=== PATIENT | female | born 1995 | race Caucasian/White ===

== ENCOUNTER 2018-10-06 23:25 | Inpatient (IN) | payer MEDICAID ==
[~2018-10-06] VITALS: Ht 165.1 cm; Wt 67.1 kg
[2018-10-06 23:25] VITALS: BP 120/60
--- NOTE | 2018-10-06 23:25 | NUR ---
PATIENT BIB ALS TO ER BED 10.
--- NOTE | 2018-10-06 23:25 | NUR ---
Lc butler in [facility] - 10/06/18 at 2327 by GRACE PT MISTY TEE. TAKEN TO BED 10
--- NOTE | 2018-10-06 23:25 | NUR ---
23 Y/O FEMALE [place] [facility] [place]. FIRE STATES PT WAS IN VTACH AT 183 AND GIVEN AMIODARONE.6 AND 12. HR REDUCED TO 132 UPON ER ARRIVAL. PT NON-VERBAL AND NON-AMBULATORY AT BASELINE. FEBRILE AT 105.3 RACTAL. COOLING MEASUES IMPLEMENTED. SKIN WORM AND DRY. PUPILS EQUAL AND REACTIVE (PERRLA) @ 3MM. X2 SIDE RAILS UP. ER MD AT BEDSIDE FOR EVALUATION. CONTINUE TO MONITOR.
[2018-10-06] MEDS ORDERED: NACL 0.9% 2,000 ML IV ONE (23:34)
[2018-10-06] MEDS ORDERED: LEVOFLOXACIN 750 MG/D5W PREMIX 150 ML IV ONE (23:35)
[2018-10-06] MEDS ORDERED: IBUPROFEN CHILDRENS 100 MG/5 ML UDC PO ONE (23:35)
[2018-10-06] MEDS ORDERED: VANCOMYCIN 1,000 MG in DEXTROSE 5% 250 ML IV ONE (23:35)
[2018-10-06] MEDS ORDERED: ACETAMINOPHEN 650 MG SUPP RC ONE ×2 (23:35→23:44)
[2018-10-06] MEDS ORDERED: IBUPROFEN CHILDRENS 100 MG/5 ML UDC ONE (23:44)
[2018-10-06] MEDS ORDERED: CRAN450C GT (23:54)
[2018-10-06] MEDS ORDERED: LEVE1000 GT (23:54)
[2018-10-06] MEDS ORDERED: MELA3TAB GT (23:54)
[2018-10-06] MEDS ORDERED: LORA10TA19 GT (23:54)
[2018-10-06] MEDS ORDERED: TOP100 GT (23:54)
[2018-10-06] MEDS ORDERED: DOCU250S72 GT (23:54)
[2018-10-06] MEDS ORDERED: POLY15SO48 OP (23:54)
[2018-10-06] MEDS ORDERED: MIRABULK GT (23:54)
[2018-10-06 23:59] LABS: HEMATOCRIT 42.5 % (36-48); HEMOGLOBIN 13.8 g/dL (12.0-16.0); MEAN CORPUSCULAR HEMOGLOBIN 30 pg (27-31); MEAN CORPUSCULAR HGB CONC 33 g/dL (33-37); MEAN CORPUSCULAR VOLUME 91.3 fL (80-94); PLATELET COUNT (AUTO) 205 K/uL (140-450); RED BLOOD CELL COUNT(AUTO) 4.65 MIL/uL (4.20-5.40); WHITE BLOOD COUNT (AUTO) 17.6 K/uL (4.8-10.8)
[2018-10-07] VITALS (11 sets, daily range): BP systolic 104–140; BP diastolic 52–89
[2018-10-07 00:10] LABS: ANION GAP 19.7 (8-16); CARBON DIOXIDE 22.1 mmol/L (21-32); CREATININE 1.2 mg/dL (0.6-1.3); POTASSIUM 3.8 mmol/L (3.5-5.1)
[2018-10-07 00:13] LABS: PROTHROMBIN TIME 11.6 secs (10.8-13.4)
[2018-10-07 00:16] LABS: TOTAL BILIRUBIN 0.6 mg/dL (0.0-1.0)
[2018-10-07 00:19] LABS: LYMPHOCYTES % (MANUAL) 2 % (20-46)
--- NOTE | 2018-10-07 00:30 | NUR ---
PT IN BED RESTING. VSS. NON-PRODUCTIVE COUGH PRESENT BUT NO RESPIRATORY DISTRESS NOTED. CONTINUE TO MONITOR.
[2018-10-07] MEDS ORDERED: VANCOMYCIN 1,000 MG VIAL ONE (00:36)
--- NOTE | 2018-10-07 00:40 | NUR ---
X-Ray at bedside.
--- NOTE | 2018-10-07 01:00 | NUR ---
TEMPERATURE DECREASED TO 100.3. CONTINUE COOLING MEASURES. CONTINUE TO MONITOR.
[2018-10-07] MEDS ORDERED: diphenhydrAMINE 50 MG/ML VIAL IVP ONE (01:10)
--- NOTE | 2018-10-07 01:11 | NUR ---
PT NOTED WITH HIVES TO RIGHT ARM WHERE LEVAQUIN WAS INFUSING. ANTIBIOTICS STOPPED, DISCONTINUED. DR. HOOVER MADE AWARE. IV FLUSHED WITH 10 CC NS. WAITING FOR NEW ORDERS.
[2018-10-07] MEDS ORDERED: diphenhydrAMINE 50 MG/ML VIAL ONE (01:23)
[2018-10-07] MEDS ORDERED: DOCUSATE SODIUM 100 MG GELCAP PO PRN (01:30)
[2018-10-07] MEDS ORDERED: KETOROLAC 15 MG/ML VIAL IVP PRN (01:30)
[2018-10-07] MEDS ORDERED: MORPHINE SULFATE 2 MG/ML SYR IVP PRN (01:30)
[2018-10-07] MEDS ORDERED: ZOLPIDEM 5 MG TAB PO PRN (01:30)
[2018-10-07] MEDS ORDERED: ONDANSETRON 4 MG/2 ML VIAL IM/IVP PRN (01:30)
[2018-10-07] MEDS ORDERED: IBUP-1842 GT (01:45)
[2018-10-07] MEDS ORDERED: TRAM50TA3 GT (01:45)
[2018-10-07] MEDS ORDERED: LACT1TAB35 GT (01:45)
[2018-10-07] MEDS ORDERED: MULT-1868 GT (01:45)
[2018-10-07] MEDS ORDERED: NUTR887L GT (01:45)
[2018-10-07] MEDS ORDERED: VITD1000 GT (01:45)
[2018-10-07] MEDS ORDERED: RIVA20TA GT (01:45)
[2018-10-07] MEDS ORDERED: OSC500 GT (01:45)
[2018-10-07] MEDS ORDERED: DEXL30EC GT (01:46)
[2018-10-07] MEDS ORDERED: CHLO480L1 PO (01:47)
[2018-10-07 01:54] LABS: APPEARANCE,URINE HAZY (CLEAR); BILIRUBIN,URINE NEGATIVE (NEGATIVE); BLOOD, URINE 3+ (NEGATIVE); COLOR,URINE YELLOW (YELLOW); LEUKOCYTE ESTERASE ,URINE 1+ (NEGATIVE); NITRITE, URINE NEGATIVE (NEGATIVE); UGLUCOSE NEGATIVE (NEGATIVE)
--- NOTE | 2018-10-07 02:00 | NUR ---
PT IN BED RESTING. VSS. HOB ELEVATED. AFEBRILE. NO RESPIRATORY DISTRESS. PT CALM. CONTINUE TO MONITOR.
--- NOTE | 2018-10-07 02:07 | NUR ---
BP TAKEN AND REDUCED TO 78/43 WITH HR OF 114. DR HOOVER NOTIFIED. LEVOPHED DRIP ORDERED. DR HOOVER STATES PT STABLE FOR TRANSFER TO ICU AT THIS TIME WITHOUT STARTING THE LEVOPHED DRIP.
[2018-10-07 02:10] LABS: BARBITURATE, URINE NEG. ng/ml (NEG <=200); BENZODIAZEPINE, URINE NEG. ng/mL (NEG <=200); CANNABINOID, URINE NEG. ng/mL (NEG <=50); COCAINE, URINE NEG. ng/mL (NEG <=300); OPIATE, URINE NEG. ng/mL (NEG <=2000); PHENCYCLIDINE SCREEN,URINE NEG. ng/mL (NEG <=25)
[2018-10-07] MEDS ORDERED: NOREPINEPHRINE 4 MG in DEXTROSE 5% 250 ML IV ONE (02:10)
[2018-10-07] MEDS ORDERED: NACL 0.9% 2,000 ML IV ONE (02:10)
--- NOTE | 2018-10-07 02:10 | NUR ---
2,000 ML OF NS STARTED AT 02:10. UNABLE TO CHART IN EMAR. ORDERS CARRIED OUT PER DR HOOVER.
[2018-10-07 02:11] LABS: MAGNESIUM 2.1 mg/dL (1.8-2.4); PHOSPHORUS 2.8 mg/dL (2.5-4.9); THYROID STIMULATING HORMONE 0.65 uIU/mL (0.34-3.74)
[2018-10-07 02:15] LABS: RBC,URINE 20-50 /HPF (0-5)
--- NOTE | 2018-10-07 02:25 | NUR ---
BP RECYCLED PRIOR TO TRANSFER TO ICU 8. BP 104/53. CONTINUE TO MONITOR.
--- NOTE | 2018-10-07 02:30 | NUR ---
RECEIVED REPORT FROM ER NURSE, PATIENT SAFELY TRANSFERRED TO ICU8, PATIENT CONNECTED TO LEADS, BP, [id number]. WILL CONTINUE ADMISSION PROCESS.
--- NOTE | 2018-10-07 02:35 | NUR ---
REPORT GIVEN AND CARE TRANSFERED TO [facility] ROOM ICU 8. TRANSFERED VIA GURNEY WITH VSS.
--- NOTE | 2018-10-07 02:40 | NUR ---
IN TO ASSESS PATIENT, WILL CARRY OUT NEW ORDERS.
--- NOTE | 2018-10-07 02:55 | NUR ---
PATIENT ANOx0, EYE OPENING SPONTANEOUSLY, UNABLE TO TRACK. EYES 4MM PERRL,BRISK, CANNOT FOLLOW COMMANDS, CANNOT MAKE NEEDS KNOWN. SKIN IS WARM, SLIGHTLY FLUSHED IN THE FACE. TEMPERATURE PER TEMPORAL ARTERY SCAN 98.2, NO COOLING MEASURES IN PLACE. PATIENT HAS A TRACHEOSTOMY TO COLLAR WITH 4L.SATURATION 100% CRACKLES HEARD ON LUNG SOUNDS BILATERALLY UPPER LOBES. RESPIRATIONS UNLABORED-14. SINUS TACH ON MONITOR-HR 115, S1S2. BP-104/52. SKIN IS INTACT, NO PRESSURE INJURIES NOTED, SURGICAL INCISION SCAR ON LEFT BACK, NO EDEMA, RIGHT ARM SLIGHTLY MOTTLED. BUE CONTRACTED, LEFT LEG CONTRACTED, BILATERAL FEET DEFORMITY. CAP REFILL <3 SEC. PATIENT HAS RIGHT WRIST PERIPHERAL IV 20G AND LEFT AC 20G. CURRENTLY GIVING 3L NS BOLUS AND ANTIBIOTIC VANCO. PATIENT HAS VALENTE CATHETER IN PLACE. FLACC 0. ALLERGY BAND, ID BAND, AND FALL RISK BANDS IN PLACE. BED LOCKED AND IN LOWEST POSITION, HOB ELEVATED 30 DEGREES. WILL FOLLOWUP ON ORDERS.
[2018-10-07] MEDS ORDERED: MELATONIN 3 MG TAB GT PRN (03:30)
[2018-10-07] MEDS ORDERED: traMADol 50 MG TAB GT PRN (03:30)
[2018-10-07] MEDS ORDERED: IBUPROFEN 400 MG TAB GT PRN (03:40)
[2018-10-07] MEDS: NACL 0.9% 1,000 ML IV SCH ×3 (04:30→20:12)
[2018-10-07] MEDS ORDERED: cefTRIAXone 1,000 MG VIAL ONE (04:54)
--- NOTE | 2018-10-07 05:00 | NUR ---
VAP ORAL CARE PROVIDED, PATIENT REPOSITIONED, AFEBRILE. NO SIGNS OF DISTRESS AT THIS TIME, WILL CONTINUE TO MONITOR.
--- NOTE | 2018-10-07 06:15 | NUR ---
PATIENT'S MOTHER (SWIMMING POOL SALESPERSON) CONTACTED, UPDATED ON PATIENT, MOTHER CONFIRMED SHE WILL BE ON HER WAY TO SIGN ADMISSION PAPERWORK.
--- NOTE | 2018-10-07 07:07 | NUR ---
RECEIVED BEDSIDE REPORT FROM TOWER HOIST OPERATOR RN, DAKOTAH, FOR CONTINUITY OF CARE. PATIENT IS AWAKE, OPENS EYES SPONTANEOUSLY, UNABLE TO MAKE NEEDS KNOWN OR FOLLOW SIMPLE COMMANDS. PATIENT SKIN IS INTACT, WARM, DRY, AFEBRILE. PATIENT HAS PERIPHERAL IV SITE TO LAC, 20 GAUGE AND R. WRIST, 20 GAUGE. BOTH ASYMPTOMATIC AND PATENT. PATIENT HAS TRACH COLLAR, BREATHING IS EVEN AND UNLABORED, O2 SAT IS 95%, LUNG SOUNDS IS COARSE BILATERALLY. PATIENT IS ST ON MONITOR, BP IS 124/99. PATIENT HAS GTUBE IN PLACE. VALENTE CATHETER IN PLACE TO CLEAR YELLOW URINE. HOB IS 30 DEGREES, BED LOCKED SIDE RAILS UP. SAFETY PRECAUTIONS AND ALARMS ASSESSED AND IN PLACE. NO SIGNS OF DISTRESS AT THIS TIME.
--- NOTE | 2018-10-07 07:10 | NUR ---
GAVE REPORT TO DAY SHIFT NURSES FOR FOLLOWUP CARE. ENDORSED THAT FEEDING IS ORDERED, JUST WAITING TO RECEIVE IT, ENDORSED THAT MOTHER IS ON THE WAY TO COMPLETE PAPERWORK. NO SIGNS OF DISTRESS NOTED, FLACC 0.
[2018-10-07 07:33] LABS: ANION GAP 15.1 (8-16); CARBON DIOXIDE 16.6 mmol/L (21-32); CREATININE 0.9 mg/dL (0.6-1.3); POTASSIUM 3.7 mmol/L (3.5-5.1)
--- NOTE | 2018-10-07 07:34 | NUR ---
RESIDENT PHYSICIANS AT BEDSIDE, UPDATED PATIENT'S MOTHER ON PATIENT'S CONDITION, DISCUSSED PLACING CENTRAL LINE IN PATIENT IF NEEDED FOR LOW BP, PATIENT'S MOTHER VERBALIZED UNDERSTANDING.
--- NOTE | 2018-10-07 07:48 | NUR ---
DR. AMEZCUA IN TO SEE PATIENT, UPDATED ON PATIENT'S CONDITION. WILL FOLLOW UP ON ANY ORDERS.
[2018-10-07] MEDS ORDERED: LORazepam 2 MG/ML VIAL IVP SCH (07:50)
[2018-10-07] MEDS: POLYETHYLENE GLYCOL 17 GM/PKT GT SCH (08:24)
[2018-10-07] MEDS: DOCUSATE 100 MG/10 ML UDC GT SCH (08:25)
[2018-10-07] MEDS: PANTOPRAZOLE 40 MG INJ VIAL IVP SCH (08:25)
[2018-10-07] MEDS: LACTOBACILLUS RHAMNOSUS GG 1 EACH CAP GT SCH (08:28)
[2018-10-07] MEDS: RIVAROXABAN 10 MG TAB GT SCH (08:28)
[2018-10-07] MEDS: levETIRAcetam 500 MG TAB GT SCH ×2 (08:29→20:11)
[2018-10-07] MEDS: LORATADINE 10 MG TAB GT SCH (08:29)
[2018-10-07] MEDS: MULTIVITAMIN/MINERALS 1 TAB GT SCH (08:29)
[2018-10-07] MEDS: TOPIRAMATE 100 MG TAB GT SCH ×2 (08:29→20:12)
[2018-10-07] MEDS ORDERED: VANCOMYCIN PER PHARMACY MC PRN (08:35)
[2018-10-07 08:55] LABS: HEMATOCRIT 39.6 % (36-48); HEMOGLOBIN 11.7 g/dL (12.0-16.0); MEAN CORPUSCULAR HEMOGLOBIN 29 pg (27-31); MEAN CORPUSCULAR HGB CONC 30 g/dL (33-37); MEAN CORPUSCULAR VOLUME 96.1 fL (80-94); PLATELET COUNT (AUTO) 149 K/uL (140-450); RED BLOOD CELL COUNT(AUTO) 4.12 MIL/uL (4.20-5.40)
[2018-10-07] MEDS ORDERED: NON-FORMULARY ITEM (Chlorhexidine Gluconate (Periogard 480 Ml) 15 ML) PO SCH (09:00)
[2018-10-07] MEDS ORDERED: NON-FORMULARY ITEM (Amino Acids/Protein Hydrolys (Pro-Stat Sugar Free Liquid) 30 ML) GT SCH (09:00)
--- NOTE | 2018-10-07 09:14 | NUR ---
SPOKE WITH PHARMACIST, THAD, REGARDING ADMINISTERING ANTIBIOTIC ZOSYN, STATES TO MONITOR PATIENT FOR ANY REACTIONS DUE TO HER ALLERGIES TO MEROPENEM
[2018-10-07 09:22] LABS: WHITE BLOOD COUNT (AUTO) 32.7 K/uL (4.8-10.8)
[2018-10-07 09:23] LABS: LYMPHOCYTES % (MANUAL) 3 % (20-46); MONOCYTES % (MANUAL) 7 % (5-12)
[2018-10-07] MEDS: CHOLECALCIFEROL 1,000 IU TAB GT SCH (09:32)
[2018-10-07] MEDS: CALCIUM CARBONATE 500 MG TAB GT SCH (09:33)
[2018-10-07] MEDS: POLYVINYL ALCOHOL 1.4% OP 15 ML SOL BOTH EYES SCH ×2 (09:33→20:14)
--- NOTE | 2018-10-07 09:59 | NUR ---
IS HERE TO SEE PATIENT, UPDATED ON PATIENT'S CONDITION. WILL FOLLOW UP ON ANY ORDERS.
--- NOTE | 2018-10-07 11:47 | NUR ---
PATIENT HAD 1 MODERATE SOFT YELLOW BM, SHE WAS CLEANED AND REPOSITIONED. NO SIGNS OF DISTRESS AT THIS TIME
[2018-10-07] MEDS: PIPER/TAZO 3.375GM/D5W PREMIX 50 ML IV SCH ×3 (11:59→23:43)
--- NOTE | 2018-10-07 12:43 | NUR ---
PATIENT HAS BEEN SCREENED AND CATEGORIZED HIGH NUTRITION RISK. PATIENT WILL BE SEEN WITHIN 1-2 DAYS OF ADMISSION. 10/07/1804/28BRENNAN VICTORIA MBA, RD
[2018-10-07] MEDS: VANCOMYCIN 1GM/DEXT 5% PREMIX 200 ML IV SCH (13:07)
--- NOTE | 2018-10-07 15:30 | NUR ---
HOTEL CONTROLLER CALLED TO BEDSIDE TO ASSESS PULMONARY DISTRESS PATIENT PRESENTING WITH SINUS TACHYCARDIA AND INCREASED SOB PORTEX #8 CUFFLESS TRACH INNER CANNULA FOUND TO BE SEMI PLUGGED CHANGED INNER CANNULA AT THIS TIME Addendum: 10/07/18 at 1609 by Cory Black RT ON SUPPLEMENTAL OXYGEN AT 4 LPM VIA TRACH MASK
--- NOTE | 2018-10-07 15:34 | NUR ---
PATIENT WAS TACHYCARDIC, DR. DIALLO AWARE. RT AT BEDSIDE.
--- NOTE | 2018-10-07 15:48 | NUR ---
ADDED COOL AEROSOL AT 30%/8 LPM VIA INLINE SUCTION CATHETER
--- NOTE | 2018-10-07 16:05 | NUR ---
RESTING WELL DECREASED SOB TO 20 BPM SATURATION 99% ON COOL AEROSOL AT 30%/8 LPM TO INLINE SUCTIONCATHETER/TRACH
--- NOTE | 2018-10-07 17:15 | NUR ---
10/07/18 RD INITIAL ASSESSMENT COMPLETED PLEASE REFER TO NUTRITION ASSESSMENT UNDER CARE ACTIVITY FOR ESTIMATED NUTRITIONAL NEEDS. 1. RECOMMEND CONTINUE CURRENT TF JEVITY; INCREASE RATE BY 10MLS/HR Q8HRS TOLERATED BY PATIENT TO REACH GOAL RATE. 2. RECOMMEND INCREASE TF GOAL RATE FROM 40MLS/HR TO 70MLS/HR (2016KCALS, 93G PROTEIN, 1355MLS WATER) TO HELP MEET PT INCREASED PROTEIN & ENERGY NEEDS. 3. WITH TF GOAL RATE OF 70MLS/HR, RECOMMEND WATER FLUSH 120MLS Q4HRS. 4. F/U 2-3 DAYS; HIGH RISK. BRENNAN VICTORIA MBA, RD
--- NOTE | 2018-10-07 19:02 | NUR ---
ENDORSED CONTINUITY OF CARE TO LATIN DANCER RNS, JANET AND SUMMER. NO SIGNS OF DISTRESS AT THIS TIME
--- NOTE | 2018-10-07 19:05 | NUR ---
RECEIVED BEDSIDE REPORT FROM DAY SHIFT RN, FOR CONTINUITY OF CARE. PATIENT AWAKE, OPENS EYES SPONTANEOUSLY, UNABLE TO MAKE NEEDS KNOWN OR FOLLOW COMMANDS. SKIN INTACT, UPPER AND LOWER BILATERAL EXTREMITY CONTRACTURES. PERIPHERAL IV 20 G IN LEFT AC INFUSING NS AT 60 ML/HR AND RIGHT WRIST 20 G BOTH ASYMPTOMATIC AND PATENT. TRACH COLLAR, PORTEX SIZE 7 MM. BREATHING IS EVEN AND UNLABORED, O2 SAT AT 97%, FIO2 30%, 8 L O2, LUNG SOUNDS ARE COARSE BILATERALLY, RR EVEN AND UNLABORED. ST ON MONITOR, TEMP 100.9 F AXILLARY, BP 133/60 MAP 81. PATIENT HAS G-TUBE IN PLACE INFUSING JEVITY AT 40 ML/HR WITH WATER FLUSH OF 200 ML Q4H. VALENTE CATHETER IN PLACE INFUSING YELLOW URINE AT 100 ML. HOB AT 30 DEGREES, BED LOCKED SIDE RAILS UP. SAFETY AND SEIZURE PRECAUTIONS IN PLACE. ALARMS ASSESSED AND IN PLACE. NO SIGNS OF DISTRESS AT THIS TIME.
--- NOTE | 2018-10-07 19:35 | NUR ---
AXILLARY TEMPERATURE 100.9 F, CALLED DR CARROLL FOR ORDERS, WILL FOLLOW WITH ORDERS.
--- NOTE | 2018-10-07 19:40 | NUR ---
ORDER RECEIVED FOR ACETAMINOPHEN FOR FEVER WILL ADMINISTER
[2018-10-07] MEDS: ACETAMINOPHEN 325 MG TAB PO PRN (20:11)
--- NOTE | 2018-10-07 20:12 | NUR ---
DUE MEDICATIONS GIVEN, ADMINISTERED IVP ATIVAN FOR AGITATION, RESIDUALS AT 60 ML WILL CONTINUE TO MONITOR.
[2018-10-07] MEDS: LORazepam 2 MG/ML VIAL IM/IVP PRN (20:22)
--- NOTE | 2018-10-07 22:15 | NUR ---
TEMPERATURE 98.2 F HR 127
--- NOTE | 2018-10-07 23:34 | NUR ---
ADMINISTERED SCHEDULED ZOSYN. TEMPERATURE 97.7 F
[2018-10-08] VITALS (12 sets, daily range): BP systolic 96–128; BP diastolic 51–74
--- NOTE | 2018-10-08 | NUR ---
ORAL CARE PROVIDED, SUCTIONED PATIENT X1, SCANT SECRETIONS NOTED
--- NOTE | 2018-10-08 00:33 | NUR ---
critical lab result; vanco trough 20.4; phone call to after hours pharmacy; spoke with Nathaniel pharmacist read bacl lab result; pharmacist said to give the 0100 dose. Alex rn and Savannah rn aware
--- NOTE | 2018-10-08 01:00 | NUR ---
VANCO INFUSING AT 135 ML/HR
[2018-10-08] MEDS: VANCOMYCIN 1GM/DEXT 5% PREMIX 200 ML IV SCH (01:01)
--- NOTE | 2018-10-08 03:00 | NUR ---
REPOSITIONED FOR COMFORT, BED BATH PROVIDED, VALENTE CARE PROVIDED.
--- NOTE | 2018-10-08 04:00 | NUR ---
ORAL CARE PROVIDED, SUCTIONED PATIENT X1 SCANT SECRETIONS NOTED
[2018-10-08] MEDS: PIPER/TAZO 3.375GM/D5W PREMIX 50 ML IV SCH ×3 (05:15→18:08)
--- NOTE | 2018-10-08 05:15 | NUR ---
DUE MEDICATIONS GIVEN
--- NOTE | 2018-10-08 05:51 | NUR ---
PATIENT HAD ONE LARGE BM, LIGHT GREEN, WATERY IN COLOR
[2018-10-08] MEDS: LORazepam 2 MG/ML VIAL IM/IVP PRN (06:05)
--- NOTE | 2018-10-08 06:13 | NUR ---
CALLED DR CARROLL TO NOTIFY HR IN 150'S AND RUNNING SVT
--- NOTE | 2018-10-08 06:16 | NUR ---
CALLED RT TO SEE PATIENT
--- NOTE | 2018-10-08 06:18 | NUR ---
CLINICAL LAB TECHNOLOGIST CALLED TO BEDSIDE TO ASSESS AGONAL BREATHING PATTERN SATURATION 95% ON COOL AEROSOL AT 30%/8 LPM SINUS TACHYCARDIA 145 BPM 16 BREATH SOUNDS DIFFUSE RHONCHI BILATERAL DEEP TRACHEAL SUCTION FOR SCANT SEMI THICK YELLOW/GREEN SECRETIONS REVIEWED CARDIAC MEDS WITH NOC RN'S INCREASED FIO2 TO 40%/10 LPM FOR CARDIAC SUPPORT
[2018-10-08 06:19] LABS: ANION GAP 15.4 (8-16); CARBON DIOXIDE 20.1 mmol/L (21-32); CREATININE 1.3 mg/dL (0.6-1.3); POTASSIUM 3.5 mmol/L (3.5-5.1)
[2018-10-08] MEDS ORDERED: DILTIAZEM 30 MG TAB GT SCH (06:25)
[2018-10-08 06:30] LABS: HEMATOCRIT 33.6 % (36-48)
--- NOTE | 2018-10-08 06:30 | NUR ---
DR CARROLL @ BEDSIDE.
[2018-10-08] MEDS ORDERED: DILTIAZEM 25 MG/5 ML VIAL IVP ONE (06:36)
--- NOTE | 2018-10-08 06:45 | NUR ---
PT HAS INCREASED WORK OF BREATHING SUSTAINING HR 140-150S, DR CARROLL @ BEDSIDE. CARDIZEM IVP ORDERED, CXR. AM LABS PENDING. 0637: 25 MG IVP CARDIZEM GIVEN. BP 129/68 HR 141 RR17. 99% SPO2. 0641: HR 111 BP 112/50 RR 15 97% SPO2. PT STILL HAS ACCESSORY MUSCLE USE WHILE BREATHING. AWARE.
[2018-10-08 06:48] LABS: HEMOGLOBIN 10.4 g/dL (12.0-16.0); MEAN CORPUSCULAR HEMOGLOBIN 29 pg (27-31); MEAN CORPUSCULAR HGB CONC 31 g/dL (33-37); MEAN CORPUSCULAR VOLUME 94.3 fL (80-94); PLATELET COUNT (AUTO) 148 K/uL (140-450); RED BLOOD CELL COUNT(AUTO) 3.56 MIL/uL (4.20-5.40); RED CELL DISTRIBUTION WIDTH 18.1 % (11.6-13.7)
[2018-10-08] MEDS ORDERED: DILTIAZEM 25 MG/5 ML VIAL IVP SCH (06:50)
[2018-10-08 06:59] LABS: WHITE BLOOD COUNT (AUTO) 48.6 K/uL (4.8-10.8)
[2018-10-08 07:00] LABS: LYMPHOCYTES % (MANUAL) 7 % (20-46); METAMYELOCYTES % 2 % (0-0); MONOCYTES % (MANUAL) 4 % (5-12)
--- NOTE | 2018-10-08 07:02 | NUR ---
CALLED DR CARROLL TO NOTIFY WBC 48.6
--- NOTE | 2018-10-08 07:10 | NUR ---
RECEIVED REPORT FROM NIGHT NURSE SUMMER. WBC ELEVATED. FEVER OF 100.9, TYLENOL ORDERED DURING PHARMACY DISTRICT MANAGER. HR WAS IN 150s, GIVEN ATIVAN. HAD 2 WATERY BOWEL MOVEMENTS. XRAY TO COME IN AM. PATIENT OPENS EYES TO SOUND AND TOUCH. PATIENT COLOR WNL AND DRY. VALENTE CARE PERFORMED. TOLERATED WELL. BREATH SOUNDS CLEAR AND UNLABORED. URINE YELLOW AND CLEAR. IV SITE LEFT AC AND RIGHT WRIST INTACT 20 GAUGE AND NO S/S OF INFECTION. G TUBE IN PLACE NO S/S OF INFECTION. ORAL CARE PERFORMED AND TOLERATED WELL. NO OPEN WOUNDS. T BAR IN PLACE AND TOLERATING WELL. HOB ELEVATED AT 35 DEGREE ANGLE. SEIZURE SIDE RAILS IN PLACE. BED LOWERED. SIDE RAILS UP FOR SAFETY. NUTRITION FEEDING IN PLACE.
[2018-10-08] MEDS ORDERED: HYDROmorphone 1 MG/ML AMP IVP ONE (07:15)
--- NOTE | 2018-10-08 07:20 | NUR ---
ENDORSED PATIENT TO DAY SHIFT NURSE EIRENE FOR CONTINUITY OF CARE. PATIENT STABLE
[2018-10-08] MEDS ORDERED: NACL 0.9% 1,000 ML IV SCH (08:50)
[2018-10-08] MEDS: DOCUSATE 100 MG/10 ML UDC GT SCH (09:00)
[2018-10-08] MEDS: POLYETHYLENE GLYCOL 17 GM/PKT GT SCH (09:00)
[2018-10-08 09:29] LABS: CHOL/HDL RATIO 10.3 (1-4.5); MAGNESIUM 1.9 mg/dL (1.8-2.4)
--- NOTE | 2018-10-08 09:30 | NUR ---
DR. RIOJAS AND RESIDENT PHYSICIANS AT BEDSIDE, UPDATED ON PATIENT'S CONDITION.
[2018-10-08] MEDS: POLYVINYL ALCOHOL 1.4% OP 15 ML SOL BOTH EYES SCH ×2 (09:31→21:07)
[2018-10-08] MEDS: levETIRAcetam 500 MG TAB GT SCH ×2 (09:32→21:07)
[2018-10-08] MEDS: PANTOPRAZOLE 40 MG INJ VIAL IVP SCH (09:32)
[2018-10-08] MEDS: TOPIRAMATE 100 MG TAB GT SCH ×2 (09:33→21:08)
[2018-10-08] MEDS: LACTOBACILLUS RHAMNOSUS GG 1 EACH CAP GT SCH (09:33)
[2018-10-08] MEDS: MULTIVITAMIN/MINERALS 1 TAB GT SCH (09:34)
[2018-10-08] MEDS: RIVAROXABAN 10 MG TAB GT SCH (09:34)
[2018-10-08] MEDS: LORATADINE 10 MG TAB GT SCH (09:35)
[2018-10-08] MEDS: THIAMINE 200 MG in NACL 0.9% 50 ML IV SCH ×2 (09:37→21:06)
[2018-10-08] MEDS: CALCIUM CARBONATE 500 MG TAB GT SCH (09:38)
[2018-10-08] MEDS: CHOLECALCIFEROL 1,000 IU TAB GT SCH (09:38)
--- NOTE | 2018-10-08 09:48 | NUR ---
DR. DIAZ IN TO SEE AND EXAMINE PATIENT, UPDATED ON PATIENT'S CONDITION. STATES IF PATIENT'S BP DROPS TO START NEOSYNEPHRINE DUE TO HIGH HR. WILL FOLLOW UP ON ANY ORDERS.
--- NOTE | 2018-10-08 09:57 | NUR ---
SCHEDULED MEDS ADMINISTERED. TOLERATED WELL
[2018-10-08] MEDS: ACETAMINOPHEN 325 MG TAB PO PRN (10:21)
--- NOTE | 2018-10-08 10:31 | NUR ---
DR. WATSON CALLED, UPDATED ON PATIENT'S CONDITION. STATES THAT HE WILL PUT IN NEW ORDERS FOR ANTIBIOTICS
[2018-10-08] MEDS: ASCORBIC ACID INJ 1,500 MG in NACL 0.9% 100 ML IV SCH ×2 (12:00→18:08)
[2018-10-08] MEDS ORDERED: SODIUM PHOS / POTASSIUM PHOS 1 PKT PDR GT SCH (12:00)
[2018-10-08] MEDS: VANCOMYCIN 1,000 MG VIAL GT SCH ×2 (12:00→18:06)
--- NOTE | 2018-10-08 12:03 | NUR ---
SCREEN FOR LOW DENNIS SCALE AT RISK, PRESSURE INJURY PREVENTION INTERVENTIONS IN PLACE. -TURN AND REPOSITION PATIENT Q 2H -ASSESS AND MONITOR SKIN CONDITION DURING POSITION CHANGE -OFFLOAD BILATERAL HEELS BY PLACING PILLOWS UNDER CALVES AT ALL TIMES, UNLESS OTHERWISE CONTRAINDICATED -PRESSURE REDISTRIBUTION BY PLACING PILLOWS AND OFFLOADING SACRALCOCCYX -KEEP SKIN CLEAN AND DRY AT ALL TIMES.
[2018-10-08] MEDS: metroNIDAZOLE 500 MG/NS PREMIX 100 ML IV SCH ×2 (12:19→21:07)
[2018-10-08] MEDS: HYDROCORTISONE NA SUCC 100 MG/2 ML VIAL IV SCH ×2 (12:21→18:07)
[2018-10-08] MEDS ORDERED: ALBUTEROL SULFATE/IPRATROPIU 3 ML SOL IH PRN (16:30)
--- NOTE | 2018-10-08 17:36 | NUR ---
CEMENT DESPATCH OPERATOR CALLED TO ASSESS PATIENT FOR SOB/LABORED BREATH SOUNDS DIFFUSED RHONCHI BILATERAL DEEP TRACHEAL SUCTION FOR SMALL THIN YELLOW/GREEN SECRETINS HHN PRN THERAPY AND RESPIRATORY GIVEN
--- NOTE | 2018-10-08 17:38 | NUR ---
SATURATION 98% ON SUPPLEMENTAL OXYGENT VIA COOL AEROSOL AT 40%/10 LPM POST HHN THERAPY TITRATED FIO2 TO 30%/8 LPM KYLEE/RN NOTIFIED
[2018-10-08 17:48] LABS: ANION GAP 14.1 (8-16); CARBON DIOXIDE 21.8 mmol/L (21-32); CREATININE 0.9 mg/dL (0.6-1.3)
[2018-10-08 17:51] LABS: POTASSIUM 2.9 mmol/L (3.5-5.1)
[2018-10-08] MEDS: NACL 0.45% 1,000 ML IV SCH (18:54)
[2018-10-08] MEDS ORDERED: POTASSIUM CHLORIDE 20% 40 MEQ/15 ML UDC GT SCH ×2 (19:00→21:00)
--- NOTE | 2018-10-08 19:10 | NUR ---
RECEIVED BEDSIDE REPORT FROM DAY SHIFT RN, FOR CONTINUITY OF CARE. PATIENT AWAKE, OPENS EYES SPONTANEOUSLY, UNABLE TO MAKE NEEDS KNOWN OR FOLLOW COMMANDS. PATIENT DOES NOT RESPOND TO NAME, HR AT 120 ST ON MONITOR, UPPER AND LOWER BILATERAL EXTREMITY CONTRACTURES. PERIPHERAL IV 20 G IN LEFT AC INFUSING 1/2 NS AT 100 ML/HR. TRACH COLLAR, PORTEX SIZE 7 MM. BREATHING LABORED AT 22 RR/MIN, O2 SAT AT 98%, FIO2 30%, 8 L O2, RHONCHI BILATERALLY. TEMP 97.8 F, BP 116/67 MAP 89. G-TUBE IN PLACE INFUSING JEVITY AT 70 ML/HR WITH WATER FLUSH OF 200 ML Q4H. VALENTE CATHETER IN PLACE INFUSING YELLOW URINE AT 400 ML. HOB AT 45 DEGREES, BED LOCKED SIDE RAILS UP. SAFETY AND SEIZURE PRECAUTIONS IN PLACE. ALARMS ASSESSED AND IN PLACE. NO SIGNS OF DISTRESS AT THIS TIME.
[2018-10-08] MEDS: ALBUTEROL SULFATE/IPRATROPIU 3 ML SOL IH SCH (19:39)
--- NOTE | 2018-10-08 19:40 | NUR ---
ORAL CARE PROVIDED
--- NOTE | 2018-10-08 19:45 | NUR ---
RT AT BEDSIDE MADE ROUNDS
--- NOTE | 2018-10-08 20:02 | NUR ---
PICC LINE NURSE TO COME TODAY ACCORDING TO CLOTH FINISHING RANGE OPERATOR
[2018-10-08] MEDS: VANCOMYCIN 750 MG in DEXTROSE 5% 250 ML IV SCH (21:06)
--- NOTE | 2018-10-08 21:07 | NUR ---
TUBE FEEDINGS RESIDUALS AT 150 ML, GAVE DUE MEDICATIONS WITH ADDITIONAL 50 ML WATER. HOLDING TUBING FEEDINGS AND WILL ASSESS TOLERANCE.
--- NOTE | 2018-10-08 21:10 | NUR ---
DR WATSON AT BEDSIDE, UPDATE GIVEN, NO NEW ORDERS AT THIS TIME.
--- NOTE | 2018-10-08 22:00 | NUR ---
PATIENT REPOSITIONED FOR COMFORT, SUCTIONED PATIENT X1 SCANT CLEAR SECRETIONS NOTED
--- NOTE | 2018-10-08 22:07 | NUR ---
CONSENT FOR PICC LINE SIGNED BY DR PEREZ AND PLACED IN CHART
--- NOTE | 2018-10-08 23:18 | NUR ---
PICC LINE NURSE CHONG AT BEDSIDE, KAREN LEYVA AT BEDSIDE, TIME OUT COMPLETED, V/S STABLE, RIGHT UPPER ARM PICC INSERTED, DOUBLE LUMEN, WILL CALL RADIOLOGY FOR STAT CHEST XRAY.
--- NOTE | 2018-10-08 23:24 | NUR ---
LABORER SHAFT SINKING AT BEDSIDE PERFORMING CHEST X RAY
[2018-10-09] VITALS (12 sets, daily range): BP systolic 120–148; BP diastolic 66–87
--- NOTE | 2018-10-09 | NUR ---
PICC LINE OKAY TO USE
[2018-10-09] MEDS: ASCORBIC ACID INJ 1,500 MG in NACL 0.9% 100 ML IV SCH ×4 (00:28→17:11)
[2018-10-09] MEDS: PIPER/TAZO 3.375GM/D5W PREMIX 50 ML IV SCH ×5 (00:28→23:14)
[2018-10-09] MEDS: VANCOMYCIN 1,000 MG VIAL GT SCH ×3 (00:29→12:32)
[2018-10-09] MEDS: HYDROCORTISONE NA SUCC 100 MG/2 ML VIAL IV SCH ×4 (00:29→17:12)
--- NOTE | 2018-10-09 00:29 | NUR ---
DUE MEDICATIONS GIVEN. RESIDUALS AT 0 ML, RESTARTED FEEDING TUBE, WILL CONTINUE TO MONITOR, ORAL CARE PROVIDED. REPOSITIONED FOR COMFORT.
--- NOTE | 2018-10-09 01:12 | NUR ---
SXNED PT SMALL AMT OF SECRETIONS
[2018-10-09] MEDS: NACL 0.45% 1,000 ML IV SCH ×2 (02:58→18:05)
--- NOTE | 2018-10-09 03:20 | NUR ---
R/T AT BEDSIDE, NO SIGNS OF DISTRESS, V/S STABLE
--- NOTE | 2018-10-09 04:00 | NUR ---
BED BATH PROVIDED, PATIENT HAD LARGE BM, CANT SEND FOR C-DIFF DUE TO PATIENT ON MIRALAX, RESIDENTS AWARE, ORAL CARE PROVIDED
[2018-10-09] MEDS: metroNIDAZOLE 500 MG/NS PREMIX 100 ML IV SCH ×2 (05:06→12:32)
--- NOTE | 2018-10-09 05:06 | NUR ---
DUE MEDICATIONS GIVEN, RESIDUALS AT 20
--- NOTE | 2018-10-09 06:09 | NUR ---
DUE ZOSYN GIVEN
--- NOTE | 2018-10-09 06:40 | NUR ---
DUE ASCOR GIVEN
[2018-10-09] MEDS: ALBUTEROL SULFATE/IPRATROPIU 3 ML SOL IH SCH ×3 (06:46→19:16)
--- NOTE | 2018-10-09 06:46 | NUR ---
SXN PT SMALL AMT OF YELLOW SECRETIONS PT IS RESTING WITH NO SIGNS OF DISTRESS NOTED AT THIS TIME
--- NOTE | 2018-10-09 07:10 | NUR ---
REPORT GIVEN BY NIGHT NURSE SUMMER. NO FEVER DURING CARPET CLEANER. PATIENT HAD PICC INSERTED DURING CARPET CLEANER. PICC SITE INTACT AND NO S/S AT THIS TIME. T-BAR INTACT. RIGHT WRIST 20 GAUGE PERIPHERAL IV INTACT AND LEFT AC 20 GAUGE IV PERIPHERAL. NO S/S/ OF INFECTION. BOWEL SOUNDS PRESENT. CLEAR LUNG SOUNDS. SKIN COLOR INTACT AND COLOR WNL. NO OPEN WOUNDS. VALENTE IN PLACE AND NO DISCHAGE AT THIS TIME. PATIENT RESPONDS TO NAME AND SOUND BUT UNABLE TO MAKE NEEDS MET. SAFETY PRECAUTIONS AND ALARMS ASSESSED AND ENFORCED. HOB IS 30 DEGREES, NO SIGNS OF DISTRESS AT THIS TIME.
--- NOTE | 2018-10-09 07:15 | NUR ---
BEDSIDE REPORT GIVEN TO DAY SHIFT NURSE, PATIENT STABLE
[2018-10-09 08:36] LABS: HEMATOCRIT 29.7 % (36-48); HEMOGLOBIN 9.4 g/dL (12.0-16.0); MEAN CORPUSCULAR HEMOGLOBIN 29 pg (27-31); MEAN CORPUSCULAR HGB CONC 32 g/dL (33-37); MEAN CORPUSCULAR VOLUME 90.7 fL (80-94); PLATELET COUNT (AUTO) 100 K/uL (140-450); RED BLOOD CELL COUNT(AUTO) 3.27 MIL/uL (4.20-5.40); RED CELL DISTRIBUTION WIDTH 17.6 % (11.6-13.7); WHITE BLOOD COUNT (AUTO) 33.7 K/uL (4.8-10.8)
[2018-10-09 08:37] LABS: BASOPHILS % (AUTO) 0.1 % (0.0-2.0); EOSINOPHILS # (AUTO) 1.2 K/uL (0-0.4); EOSINOPHILS % (AUTO) 3.6 % (0.0-4.0); LYMPHOCYTES % (AUTO) 2.9 % (20.5-51.1); MONOCYTES # (AUTO) 0.7 K/uL (0.8-1.0); MONOCYTES % (AUTO) 2.1 % (1.7-9.3); NEUTROPHILS # (AUTO) 30.8 K/uL (1.8-7.7); NEUTROPHILS % (AUTO) 91.3 % (42.2-75.2)
[2018-10-09 08:38] LABS: LYMPHOCYTES % (MANUAL) 5 % (20-46); MONOCYTES % (MANUAL) 4 % (5-12)
[2018-10-09 08:39] LABS: ALBUMIN 1.7 g/dL (3.4-5.0); ANION GAP 12.5 (8-16); CARBON DIOXIDE 22.3 mmol/L (21-32); CREATININE 0.7 mg/dL (0.6-1.3); TOTAL BILIRUBIN 0.3 mg/dL (0.0-1.0)
[2018-10-09 08:52] LABS: POTASSIUM 2.8 mmol/L (3.5-5.1)
[2018-10-09] MEDS: LORATADINE 10 MG TAB GT SCH (08:58)
[2018-10-09 08:59] LABS: MAGNESIUM 1.9 mg/dL (1.8-2.4)
[2018-10-09] MEDS: RIVAROXABAN 10 MG TAB GT SCH (08:59)
[2018-10-09 09:00] LABS: PHOSPHORUS 1.7 mg/dL (2.5-4.9)
[2018-10-09] MEDS ORDERED: PHARMACY COMMENTS MC SCH (09:00)
[2018-10-09] MEDS: levETIRAcetam 500 MG TAB GT SCH ×2 (09:00→20:13)
[2018-10-09] MEDS: LACTOBACILLUS RHAMNOSUS GG 1 EACH CAP GT SCH (09:00)
[2018-10-09] MEDS: POLYVINYL ALCOHOL 1.4% OP 15 ML SOL BOTH EYES SCH ×2 (09:00→20:15)
[2018-10-09] MEDS: CALCIUM CARBONATE 500 MG TAB GT SCH (09:01)
[2018-10-09] MEDS: MULTIVITAMIN/MINERALS 1 TAB GT SCH (09:01)
[2018-10-09] MEDS: PANTOPRAZOLE 40 MG INJ VIAL IVP SCH (09:01)
[2018-10-09] MEDS: TOPIRAMATE 100 MG TAB GT SCH ×2 (09:01→20:13)
[2018-10-09] MEDS: CHOLECALCIFEROL 1,000 IU TAB GT SCH (09:02)
[2018-10-09] MEDS: VANCOMYCIN 750 MG in DEXTROSE 5% 250 ML IV SCH (09:02)
[2018-10-09] MEDS: THIAMINE 200 MG in NACL 0.9% 50 ML IV SCH ×2 (09:03→20:14)
--- NOTE | 2018-10-09 09:30 | NUR ---
DR. HAWKINS IN TO SEE PATIENT, UPDATED ON PATIENT'S CONDITION.
--- NOTE | 2018-10-09 10:01 | NUR ---
DR. DIAZ IN TO SEE AND EXAMINE PATIENT, UPDATED ON PATIENT'S CONDITION. WILL FOLLOW UP ON ANY ORDERS
[2018-10-09] MEDS: POTASSIUM CHLORIDE 20% 40 MEQ/15 ML UDC GT SCH ×2 (10:37→11:30)
[2018-10-09] MEDS ORDERED: POTASSIUM PHOSPHATE 15 MM in NACL 0.9% 250 ML IV SCH ×2 (11:30→12:45)
--- NOTE | 2018-10-09 12:50 | NUR ---
PATIENT'S MOM IS HERE, RECEIVED CONSENT TO GET MEDICAL RECORDS FROM [facility]. UPDATED ON PATIENT'S CONDITION.
--- NOTE | 2018-10-09 13:37 | NUR ---
TRACH CARE DONE CHANGED INNER CANNULA AND TRACH GAUZE AND SXN YOUNG AND SNX PT SMALL AMT OF CLEAR SECRETIONS
--- NOTE | 2018-10-09 14:01 | NUR ---
PATIENT HAD 1 LARGE PASTY BM, COLLECTED STOOL SAMPLE FOR C.DIFF AND OCCULT STOOL. PATIENT CLEANED AND REPOSITIONED. NO SIGNS OF DISTRESS NOTED
--- NOTE | 2018-10-09 14:53 | NUR ---
10/09/18 FOLLOW UP COMPLETED PLEASE REFER TO NUTRITION ASSESSMENT UNDER CARE ACTIVITY FOR ESTIMATED NUTRITIONAL NEEDS. CONTINUE JEVITY AF 1.2 AT 70MLS/HR. -THIS WILL PROVIDE 1,680 VOLUME , 2016KCALS,93G PROTEIN,1355MLS WATER. WHICH MEETS 100% OF ESTIMATED NEEDS. 2.CONTINUE WATER FLUSH 120MLS Q4HRS. 3. F/U 2-3 DAYS; HIGH RISK. SHAMIKA GUERRERO , RD
--- NOTE | 2018-10-09 17:22 | NUR ---
PATIENT TURNED AND REPOSITIONED. NO SIGNS OF DISTRESS NOTED.
[2018-10-09 18:36] LABS: HEMATOCRIT 28.9 % (36-48); HEMOGLOBIN 9.1 g/dL (12.0-16.0); MEAN CORPUSCULAR HEMOGLOBIN 29 pg (27-31); MEAN CORPUSCULAR HGB CONC 32 g/dL (33-37); MEAN CORPUSCULAR VOLUME 90.7 fL (80-94); PLATELET COUNT (AUTO) 89 K/uL (140-450); RED BLOOD CELL COUNT(AUTO) 3.18 MIL/uL (4.20-5.40); RED CELL DISTRIBUTION WIDTH 17.7 % (11.6-13.7)
[2018-10-09 18:45] LABS: WHITE BLOOD COUNT (AUTO) 29.1 K/uL (4.8-10.8)
[2018-10-09 19:04] LABS: LYMPHOCYTES % (MANUAL) 2 % (20-46); MONOCYTES % (MANUAL) 2 % (5-12)
[2018-10-09 19:07] LABS: ANION GAP 15.5 (8-16); CARBON DIOXIDE 21.2 mmol/L (21-32); CREATININE 0.7 mg/dL (0.6-1.3); POTASSIUM 3.7 mmol/L (3.5-5.1)
--- NOTE | 2018-10-09 19:10 | NUR ---
ENDORSED CONTINUITY OF CARE TO ENGRAVER HAND SOFT METALS RN, SUMMER. NO SIGNS OF DISTRESS AT THIS TIME
[2018-10-09] MEDS ORDERED: POTASSIUM PHOSPHATE 15 MM in NACL 0.9% 250 ML IV ONE (19:20)
--- NOTE | 2018-10-09 19:23 | NUR ---
Received pt stable on cool aerosol mist, suctioned small amount of thin white secretions, hhn tx given, tolerated well, no resp distress or SOB noted at this time, Portex 8 cuffless trach secured/patent/midline, cont pulse ox on, will cont to monitor.
--- NOTE | 2018-10-09 19:23 | NUR ---
RECEIVED BEDSIDE REPORT FROM DAY SHIFT RN, FOR CONTINUITY OF CARE. PATIENT ON CONTACT PRECAUTIONS FOR ESBL IN URINE, PATIENT SLEEPING, OPENS EYES SPONTANEOUSLY. HR AT 69 SR ON MONITOR, TEMP 97.0 F, UPPER AND LOWER BILATERAL EXTREMITY CONTRACTURES, HAND ROLLS IN PLACE. RIGHT UPPER ARM PICC IN PLACE, DOUBLE LUMEN, SITE LOOKS CLEAN AND WITHOUT SIGNS OF INFECTION, PERIPHERAL IV 20 G IN LEFT AC INFUSING 1/2 NS AT 40 ML/HR. RIGHT WRIST 20 G, DRESSING INTACT. R/T AT BEDSIDE MAKING ROUNDS, TRACH COLLAR WITH HUMIDIFIER IN PLACE, PORTEX SIZE 7 MM. BREATHING EVEN AT 18 RR/MIN, O2 SAT AT 97%, FIO2 30%, 6 L O2, RHONCHI BILATERALLY. BP 139/77 MAP 102. G-TUBE IN PLACE INFUSING JEVITY AT 70 ML/HR WITH WATER FLUSH OF 200 ML Q4H. VALENTE CATHETER IN PLACE INFUSING YELLOW URINE, WITH 100 ML IN COLLECTION BAG. HOB AT 45 DEGREES, BED LOCKED SIDE RAILS UP. SAFETY AND SEIZURE PRECAUTIONS IN PLACE. ALARMS ASSESSED AND IN PLACE.
[2018-10-09] MEDS ORDERED: SODIUM PHOS / POTASSIUM PHOS 1 PKT PDR GT ONE (19:30)
--- NOTE | 2018-10-09 20:15 | NUR ---
DUE MEDICATIONS GIVEN, RESIDUALS AT 10 ML, ORAL CARE PROVIDED. SUCTIONED PATIENT, SCANT SECRETIONS NOTED
[2018-10-09] MEDS ORDERED: SODIUM PHOS / POTASSIUM PHOS 1 PKT PDR ONE (20:44)
--- NOTE | 2018-10-09 21:45 | NUR ---
REPOSITIONED PATIENT FOR COMFORT, HOB AT 45 DEGREES, PILLOWS APPLIED UNDER LEGS.
--- NOTE | 2018-10-09 23:14 | NUR ---
DUE ZOSYN GIVEN
[2018-10-10] VITALS (10 sets, daily range): BP systolic 112–154; BP diastolic 65–88
--- NOTE | 2018-10-10 | NUR ---
ORAL CARE PROVIDED, SUCTIONED PATIENT X1 FOR COUGHING, SCANT WHITE SECRETIONS NOTED
[2018-10-10] MEDS: ASCORBIC ACID INJ 1,500 MG in NACL 0.9% 100 ML IV SCH ×3 (00:31→12:08)
[2018-10-10] MEDS: HYDROCORTISONE NA SUCC 100 MG/2 ML VIAL IV SCH ×3 (00:33→12:08)
--- NOTE | 2018-10-10 00:33 | NUR ---
DUE ASCOR GIVEN
--- NOTE | 2018-10-10 02:27 | NUR ---
PATIENT RESTING IN BED, SLEEPING, V/S STABLE
--- NOTE | 2018-10-10 04:00 | NUR ---
ORAL CARE PROVIDED REPOSITIONED FOR COMFORT BED BATH PROVIDED
[2018-10-10] MEDS: PIPER/TAZO 3.375GM/D5W PREMIX 50 ML IV SCH ×4 (04:33→23:36)
--- NOTE | 2018-10-10 06:37 | NUR ---
HR WENT TO Addendum: 10/10/18 at 0638 by Savannah Albarado RN 55 WILL CONTINUE TO MONITOR
--- NOTE | 2018-10-10 07:20 | NUR ---
RECEIVED REPORT FROM POWER HOUSE CONTROL ROOM OPERATOR RN. PT RESTING IN BED. SPONTANEOUS EYES OPENING, NON-VERBAL, IMMOBILE. ON TRACH WITH T-PIECE. FIO2 30% WITH 6LTR O2. NO SOB OR RESPIRATORY DISTRESS NOTED. SR- SB ON MONITOR. LUNGS COARSE. JUAN JOSÉ PICC LINE IN PLACE. GOOD BLOOD RETURNS. FLUSHED. 0.45% NS INFUSING AT 40 ML/HR. LAC 20 G SALINE LOCK & RIGHT WRIST 20 G. SALINE LOCK. SITES INTACT. FLUSHED. ABDOMEN SOFT, ROUND AND NON-TENDER. ACTIVE BOWEL SOUND. G-TUBE IN PLACE. RESIDUAL 10 ML. JEVITY ON FEEDING AT 70 ML/HR. HOB ELEVATED. VALENTE CATH IN PLACE. DRAINING CLEAR YELLOW URINE VIA GRAVITY. [place] RED SKIN NOTED ON RIGHT BELOW KNEE COVERED WITH FOAM DRESSING. FLACC 0. BED IN LOW POSITION LOCKED. WILL CONTINUE TO MONITOR.
--- NOTE | 2018-10-10 07:20 | NUR ---
REPORT GIVEN TO DAY SHIFT FOR CONTINUITY OF CARE.
[2018-10-10] MEDS: ALBUTEROL SULFATE/IPRATROPIU 3 ML SOL IH SCH ×3 (07:48→19:15)
[2018-10-10] MEDS: MULTIVITAMIN/MINERALS 1 TAB GT SCH (08:17)
[2018-10-10] MEDS: levETIRAcetam 500 MG TAB GT SCH ×2 (08:17→21:15)
[2018-10-10] MEDS: LACTOBACILLUS RHAMNOSUS GG 1 EACH CAP GT SCH (08:17)
[2018-10-10] MEDS: LORATADINE 10 MG TAB GT SCH (08:18)
[2018-10-10] MEDS: CHOLECALCIFEROL 1,000 IU TAB GT SCH (08:18)
[2018-10-10] MEDS: TOPIRAMATE 100 MG TAB GT SCH ×2 (08:20→21:15)
[2018-10-10] MEDS: CALCIUM CARBONATE 500 MG TAB GT SCH (08:20)
[2018-10-10] MEDS: PANTOPRAZOLE 40 MG INJ VIAL IVP SCH (08:20)
[2018-10-10] MEDS: THIAMINE 200 MG in NACL 0.9% 50 ML IV SCH ×2 (08:21→09:25)
[2018-10-10] MEDS ORDERED: THIAMINE 200 MG/2 ML VIAL ONE (08:22)
[2018-10-10 08:34] LABS: BASOPHILS % (AUTO) 0.1 % (0.0-2.0); EOSINOPHILS % (AUTO) 0.1 % (0.0-4.0); HEMATOCRIT 32.5 % (36-48); HEMOGLOBIN 10.3 g/dL (12.0-16.0); LYMPHOCYTES # (AUTO) 1.6 K/uL (2.5-16.5); LYMPHOCYTES % (AUTO) 6.3 % (20.5-51.1); MEAN CORPUSCULAR HEMOGLOBIN 29 pg (27-31); MEAN CORPUSCULAR HGB CONC 32 g/dL (33-37); MEAN CORPUSCULAR VOLUME 90.6 fL (80-94); MONOCYTES # (AUTO) 0.9 K/uL (0.8-1.0); MONOCYTES % (AUTO) 3.4 % (1.7-9.3); NEUTROPHILS # (AUTO) 23.8 K/uL (1.8-7.7); NEUTROPHILS % (AUTO) 90.1 % (42.2-75.2); PLATELET COUNT (AUTO) 95 K/uL (140-450); RED BLOOD CELL COUNT(AUTO) 3.58 MIL/uL (4.20-5.40); RED CELL DISTRIBUTION WIDTH 18.1 % (11.6-13.7)
[2018-10-10] MEDS: RIVAROXABAN 10 MG TAB GT SCH (08:39)
--- NOTE | 2018-10-10 08:40 | NUR ---
CALLED DR. BEASLEY. MADE AWARE OF PLATELET COUNT 89. ORDERED TO HOLD XARELTO FOR NOW.
[2018-10-10 08:49] LABS: ANION GAP 16.4 (8-16); CARBON DIOXIDE 20.9 mmol/L (21-32); CREATININE 0.6 mg/dL (0.6-1.3); POTASSIUM 3.3 mmol/L (3.5-5.1)
[2018-10-10 08:50] LABS: MAGNESIUM 1.8 mg/dL (1.8-2.4); PHOSPHORUS 2.8 mg/dL (2.5-4.9)
[2018-10-10 08:57] LABS: WHITE BLOOD COUNT (AUTO) 26.4 K/uL (4.8-10.8)
[2018-10-10] MEDS: POLYVINYL ALCOHOL 1.4% OP 15 ML SOL BOTH EYES SCH ×2 (09:24→21:17)
--- NOTE | 2018-10-10 10:15 | NUR ---
DR. DIAZ IN TO SEE PT. UPDATED PT STATUS. MADE AWARE OF RECENT LAB RESULTS AND POTASSIUM 3.3. HE ALSO SAID PT CAN BE DOWNGRADED TO TELEMETRY. DR. BEASLEY MADE AWARE.
[2018-10-10] MEDS ORDERED: POTASSIUM CHLORIDE 20% 40 MEQ/15 ML UDC GT SCH (10:45)
--- NOTE | 2018-10-10 11:16 | NUR ---
PT REMAINS STABLE. NO SOB OR RESPIRATORY NOTED. CONTINUE ON T PIECE. SUCTIONED NEEDED. WHITE SECRETION NOTED. KEPT PT CLEAN AND DRY. HOB ELEVATED. BED IN LOW POSITION LOCKED.
--- NOTE | 2018-10-10 11:50 | NUR ---
CALLED [facility] [phone] SPOKE WITH KATY FOR PATIENT TRANSFER TOMORROW, FAXED CLINICALS TO [phone], PER KATY SHE WILL CALL BACK FOR BED.
--- NOTE | 2018-10-10 12:35 | NUR ---
RESIDUAL NOTED 240 ML. HELD G-TUBE FEEDING FOR NOW. DR. CUELLO MADE AWARE.
--- NOTE | 2018-10-10 14:46 | NUR ---
RESIDUAL NOTED 0 AT THIS TIME. RESUMED FEEDING. HOB ELEVATED. NO CHANGE IN CONDITION. CONTINUE TO MONITOR.
--- NOTE | 2018-10-10 15:30 | NUR ---
Real Estate Administrator Note: Per healthcare facility administrator of [facility] Katrin they will pay for patient's transportation from hospital to [facility], [employer] Helper Olga vitale aware.
[2018-10-10] MEDS: NACL 0.45% 1,000 ML IV SCH (16:44)
--- NOTE | 2018-10-10 17:08 | NUR ---
CALLED TELE UNIT. REPORT GIVEN TO RECEIVING NICK PRUETT.
--- NOTE | 2018-10-10 17:50 | NUR ---
PT TRANSFERRED TO TELE UNIT ROOM 114 VIA BED ON STABLE CONDITION. ACCOMPANIED BY RT. BELONGINGS TAKEN WITH PT. Addendum: 10/10/18 at 1808 by Inge Han RN PT'S RADIO TAKEN WITH THE PT TO THE ROOM 114. NICK MADE AWARE.
--- NOTE | 2018-10-10 18:00 | NUR ---
PATIENT WAS TRANSFERRED FROM ICU. REPORT WAS GIVEN. VS WAS TAKEN. IVF WAS HUNG. GTUBE FEEDING WAS RESTARTED. PATIENT WAS AWAKE, RESPONSIVE TO TOUCH, NON VERBAL AT BASELINE. IVS AND PICC LINE PATENT AND INTACT. SKIN DRY AND WARM. RESPIRATION EVEN, UNLABOR ON TRACH TO TPIECE 30%. FLACC 0. PLAN OF CARE WAS DISCUSSED WITH PATIENT. PATIENT UNABLE TO COMPREHEND AT THIS TIME. BED AT LOW POSITION. SIDE RAILS UP AND PADDED.
--- NOTE | 2018-10-10 19:13 | NUR ---
ENDORSEMENT GIVEN TO MANAGER BUSINESS INFORMATION NURSE. PATIENT IS STABLE AT THIS TIME
--- NOTE | 2018-10-10 19:18 | NUR ---
REPORT GIVEN TO PACKING INSPECTOR RN FOR CONTINUITY OF CARE. PT ON STABLE CONDITION.
--- NOTE | 2018-10-10 19:20 | NUR ---
RECEIVED BEDSIDE REPORT FROM DAY SHIFT NURSE. PATIENT IS AWAKE AND APHASIC. RESPIRATION EVEN UNLABORED ON T-PIECE FIO2 30%. NO DISTRESS NOTED. DENIES PAIN. SKIN IS WARM AND DRY. JUAN JOSÉ PICC LINE PATENT AND INTACT. PATIENT IS BEDBOUND. PLAN OF CARE WAS DISCUSSED. BED IS AT LOW POSITION. CALL LIGHT WITHIN REACH. WILL CONTINUE TO MONITOR.
--- NOTE | 2018-10-10 19:30 | NUR ---
RECEIVED PATIENT TRACH CUFFLESS PORTEX 8 TO COOL AEROSOL AT 30% FIO2, PULSE OX SAT 99%. CONTINUOUS PULSE OX ON AND FUNCTIONING. PULSE OX ALARMS ON AND AUDIBLE. SCHEDULED BREATHING TREATMENT ADMINISTERED. TOLERATED TX WELL, NO ADVERSE SIDE EFFECTS. AIRWAY SECURE AND PATENT. SUCTIONED SMALL AMOUNT OF THICK, WHITE SECRETIONS. NO RESPIRATORY DISTRESS NOTED AT THIS TIME. WILL CONTINUE TO MONITOR.
--- NOTE | 2018-10-10 20:00 | NUR ---
INITIAL ASSESSMENT DONE. VITALS WERE TAKEN. CHECKED G-TUBE RESIDUAL. OBTAINED 75CC. NO DISTRESS NOTED. WILL CONTINUE TO MONITOR.
--- NOTE | 2018-10-10 21:00 | NUR ---
ALL SCHEDULED MEDS WERE GIVEN PER ORDER. WILL CONTINUE TO MONITOR.
--- NOTE | 2018-10-10 22:30 | NUR ---
SUCTIONED PATIENT OBTAINED SMALL AMOUNT OF WHITE SECRETION.
--- NOTE | 2018-10-10 22:30 | NUR ---
GAVE PATIENT GOOD OLE CARE AND VALENTE CARE. NO DISTRESS NOTED. WILL CONTINUE TO MONITOR.
--- NOTE | 2018-10-10 23:30 | NUR ---
SUCTIONED MODERATE AMOUNT OF THICK, CLEAR/WHITE SECRETIONS. NO ACUTE RESPIRATORY DISTRESS NOTED AT THIS TIME. WILL CONTINUE TO MONITOR.
[2018-10-11] VITALS: BP 144/83
--- NOTE | 2018-10-11 | NUR ---
VITALS WERE TAKEN. PATIENT IN STABLE CONDITION. NO DISTRESS NOTED. WILL CONTINUE TO MONITOR.
--- NOTE | 2018-10-11 02:00 | NUR ---
CHECKED PATIENT. PATIENT SLEEPING RESPIRATION EVEN UNLABORED ON TRACH TO T-PIECE. NO DISTRESS NOTED. WILL CONTINUE TO MONITOR.
[2018-10-11 04:00] VITALS: BP 140/78
--- NOTE | 2018-10-11 04:00 | NUR ---
VITALS WERE TAKEN. PATIENT IN STABLE CONDITION. CHECKED G-TUBE RESIDUAL. OBTAINED 5CC. WILL CONTINUE TO MONITOR.
[2018-10-11] MEDS: PIPER/TAZO 3.375GM/D5W PREMIX 50 ML IV SCH ×3 (05:05→18:00)
--- NOTE | 2018-10-11 05:50 | NUR ---
SUCTIONED MODERATE AMOUNT OF THICK, WHITE SECRETIONS. TRACH CARE DONE WITHOUT INCIDENT. DRAINAGE BAG EMPTIED. STERILE WATER CHANGED. NO RESPIRATORY DISTRESS NOTED AT THIS TIME. WILL CONTINUE TO MONITOR.
[2018-10-11] MEDS: ALBUTEROL SULFATE/IPRATROPIU 3 ML SOL IH SCH (07:12)
--- NOTE | 2018-10-11 07:14 | NUR ---
ENDORSED PATIENT TO DAY SHIFT NURSE FOR CONTINUITY OF CARE. PATIENT IN STABLE CONDITION.
--- NOTE | 2018-10-11 07:15 | NUR ---
RECEIVED ENDORSEMENT FROM GENERAL ASSEMBLER NURSE. PATIENT IS AAOX1, APHASIC. RESPIRATIONS ARE EVEN AND UNLABORED ON TRACH TO T-TUBE. FLACC OF 0. LEFT AC 20G IV AND RIGHT WRIST IV NON-INTACT. REMOVED BOTH, CANNULA INTACT WITH MINIMAL BLEEDING. RIGHT UPPER ARM PICC INTACT, PATENT, AND INFUSING IVF. VALENTE CATHETER INTACT AND DRAINING CLEAR, YELLOW URINE. PLAN OF CARE WAS REVIEWED WITH PATIENT, PATIENT UNABLE TO VERBALIZE UNDERSTANDING. SAFETY MEASURES IN PLACE, CALL LIGHT WITHIN REACH.
[2018-10-11 07:30] LABS: MAGNESIUM 1.5 mg/dL (1.8-2.4); PHOSPHORUS 3.7 mg/dL (2.5-4.9)
[2018-10-11 08:00] VITALS: BP 144/98
[2018-10-11 08:20] LABS: BASOPHILS % (AUTO) 0.3 % (0.0-2.0); EOSINOPHILS # (AUTO) 0.4 K/uL (0-0.4); EOSINOPHILS % (AUTO) 2.8 % (0.0-4.0); HEMOGLOBIN 11.1 g/dL (12.0-16.0); LYMPHOCYTES # (AUTO) 2.8 K/uL (2.5-16.5); LYMPHOCYTES % (AUTO) 18.9 % (20.5-51.1); MEAN CORPUSCULAR HEMOGLOBIN 29 pg (27-31); MEAN CORPUSCULAR HGB CONC 32 g/dL (33-37); MEAN CORPUSCULAR VOLUME 89.9 fL (80-94); MONOCYTES # (AUTO) 1.4 K/uL (0.8-1.0); MONOCYTES % (AUTO) 9.1 % (1.7-9.3); NEUTROPHILS # (AUTO) 10.3 K/uL (1.8-7.7); NEUTROPHILS % (AUTO) 68.9 % (42.2-75.2); PLATELET COUNT (AUTO) 116 K/uL (140-450); RED BLOOD CELL COUNT(AUTO) 3.89 MIL/uL (4.20-5.40); RED CELL DISTRIBUTION WIDTH 17.6 % (11.6-13.7); WHITE BLOOD COUNT (AUTO) 14.9 K/uL (4.8-10.8)
[2018-10-11 08:26] LABS: ANION GAP 14.3 (8-16); CARBON DIOXIDE 27.3 mmol/L (21-32); CREATININE 0.6 mg/dL (0.6-1.3); POTASSIUM 3.6 mmol/L (3.5-5.1)
[2018-10-11] MEDS: POLYVINYL ALCOHOL 1.4% OP 15 ML SOL BOTH EYES SCH ×2 (09:00→21:17)
[2018-10-11] MEDS: PANTOPRAZOLE 40 MG INJ VIAL IVP SCH (09:00)
[2018-10-11] MEDS: levETIRAcetam 500 MG TAB GT SCH ×2 (09:00→21:16)
[2018-10-11] MEDS: MULTIVITAMIN/MINERALS 1 TAB GT SCH (09:01)
[2018-10-11] MEDS: LORATADINE 10 MG TAB GT SCH (09:01)
[2018-10-11] MEDS: CHOLECALCIFEROL 1,000 IU TAB GT SCH (09:01)
[2018-10-11] MEDS: LACTOBACILLUS RHAMNOSUS GG 1 EACH CAP GT SCH (09:02)
[2018-10-11] MEDS: TOPIRAMATE 100 MG TAB GT SCH ×2 (09:02→21:16)
[2018-10-11] MEDS: CALCIUM CARBONATE 500 MG TAB GT SCH (09:02)
--- NOTE | 2018-10-11 09:05 | NUR ---
ADMINISTERED SCHEDULED MEDICATIONS VIA G-TUBE. RESIDUAL WAS LESS THAN 5ML. PATIENT TOLERATING FEEDING WELL. SUCTIONED PATIENT. TOLERATED THAT WELL. NO OTHER NEEDS AT THIS TIME, WILL CONTINUE TO MONITOR.
--- NOTE | 2018-10-11 11:20 | NUR ---
ADMINISTERED SCHEDULED MEDICATION. FLACC 0. NO OTHER NEEDS AT THIS TIME, WILL CONTINUE TO MONITOR.
[2018-10-11] MEDS ORDERED: DEXTROSE 5% 1,000 ML IV SCH (11:50)
[2018-10-11 12:00] VITALS: BP 144/90
[2018-10-11] MEDS ORDERED: PIPE1PDS26 IV (12:13)
--- NOTE | 2018-10-11 12:30 | NUR ---
SUCTIONED PATIENT. PATIENT TOLERATED WELL. ADMINISTERED SCHEDULED FLUIDS.
--- NOTE | 2018-10-11 13:01 | NUR ---
DALE VELEZ CALLED [phone], TO ISOLATION CONFIRM BED, SHE WILL CALL BACK WITH ROOM NUMBER.
--- NOTE | 2018-10-11 13:30 | NUR ---
CALLED DALE VELEZ AGAIN [phone], SHE IS STILL CHECKING ON ROOM AVAILABLITY.
[2018-10-11] MEDS ORDERED: MAG SULF 2000 MG/WATER PREMIX 50 ML IV SCH (15:00)
--- NOTE | 2018-10-11 15:00 | NUR ---
ALEX STANLEY ARRANGED FOR MAKER UP FOLDING AT 1800 PER JOSE, TO [facility] ROOM 1800.
--- NOTE | 2018-10-11 15:30 | NUR ---
ADMINISTERED SCHEDULED MEDICATIONS. RESIDUAL 150 ML. ADMINISTERED PAIN MEDICATION FOR FLACC 7. SUCTIONED PATIENT, SMALL AMOUNT OF WHITE SECRETIONS OBTAINED. NO OTHER NEEDS AT THIS TIME, WILL CONTINUE TO MONITOR.
[2018-10-11 16:00] VITALS: BP 142/80
[2018-10-11 16:25] LABS: ANION GAP 9.8 (8-16); CARBON DIOXIDE 26.8 mmol/L (21-32); CREATININE 0.5 mg/dL (0.6-1.3)
[2018-10-11 16:35] LABS: POTASSIUM 2.6 mmol/L (3.5-5.1)
[2018-10-11] MEDS ORDERED: POTASSIUM CHLORIDE 20% 40 MEQ/15 ML UDC GT ONE (16:40)
[2018-10-11] MEDS ORDERED: POTASSIUM CHLORIDE 40 MEQ, LIDOCAINE MPF 1% - 5 mL VIAL 25 MG in NACL 0.9% 250 ML IV ONE (16:50)
[2018-10-11] MEDS ORDERED: KCL 20 MEQ/WATER INJ PREMIX 200 ML IV ONE ×2 (17:05→17:23)
[2018-10-11] MEDS ORDERED: POTASSIUM CHLORIDE 20% 40 MEQ/15 ML UDC ONE (17:19)
--- NOTE | 2018-10-11 17:30 | NUR ---
ADMINISTERED ORDERED MEDICATIONS. FLACC O. PATIENT TOLERATED WELL. NO OTHER NEEDS AT THIS TIME.
[2018-10-11] MEDS ORDERED: ALBUTEROL SULFATE/IPRATROPIU 3 ML SOL IH SCH (19:00)
[2018-10-11] MEDS: NACL 0.45% 1,000 ML IV SCH (19:16)
--- NOTE | 2018-10-11 19:20 | NUR ---
ENDORSED TO FIFTH GRADE TEACHER NURSE FOR CONTINUITY OF CARE. PATIENT IS STABLE AT THIS TIME.
--- NOTE | 2018-10-11 19:24 | NUR ---
NOTIFIED PATIENTS MOTHERMAEVE OF TRANSFER. MOM REQUESTED TO BE NOTIFIED BEFORE PATIENT LEAVES. BREAKER ENGINEER NURSE IS AWARE.
--- NOTE | 2018-10-11 19:25 | NUR ---
RECEIVED BEDSIDE REPORT FROM DAY SHIFT NURSE ESVIN RN, PT STABLE, NO DISTRESS NOTED, CENTRAL LINE TO JUAN JOSÉ PICC LINE, PATENT, INTACT, INFUSING WELL, PT FLACC 0, PT ON TRACH TO T BAR, NO SOB NOTED, G TUBE IN PLACE WITH FEEDINGS, 90ML RESIDUAL, TOLERATED FEEDING WELL,B VALENTE CATH IN PLACE DRAINING YELLOW URINE. INITIAL ASSESSMENT DONE, ALL SAFETY PRECAUTION MET, CALL LIGHT WITHIN REACH, WILL CONTINUE TO MONITOR.
[2018-10-11 20:00] VITALS: BP 156/84
--- NOTE | 2018-10-11 20:15 | NUR ---
RECEIVED PATIENT TRACH PORTEX 8 CUFFLESS TO COOL AEROSOL MIST AT 30% FIO2, PULSE OX SAT 97%. SCHEDULED BREATHING TREATMENT ADMINISTERED. TOLERATED TX WELL, NO ADVERSE SIDE EFFECTS. CONTINUOUS PULSE OX ON AND FUNCTIONING; ALARMS ON AND AUDIBLE. AIRWAY SECURE AND PATENT. SUCTIONED MODERATE AMOUNT OF THICK WHITE/CLEAR FROTHY SECRETIONS. TRACH CARE DONE WITHOUT INCIDENT. NO RESPIRATORY DISTRESS NOTED AT THIS TIME. WILL CONTINUE TO MONITOR.
--- NOTE | 2018-10-11 21:17 | NUR ---
DUE MEDICATION ADMINISTERED PT TOLERATED WELL, NO DISTRESS NOTED, CALL LIGHT WITHIN REACH, WILL CONTINUE TO MONITOR.
[2018-10-11 22:39] LABS: ANION GAP 11.8 (8-16); CARBON DIOXIDE 26.7 mmol/L (21-32); CREATININE 0.5 mg/dL (0.6-1.3); POTASSIUM 4.5 mmol/L (3.5-5.1)
--- NOTE | 2018-10-11 22:40 | NUR ---
REPORT GIVEN TO NICK HUNTER STATED UNDERSTANDING, PT TO TRANSFER AT [phone].
--- NOTE | 2018-10-11 23:45 | NUR ---
PT LEFT UNIT ACCOMPANIED BY [facility], PT IN STABLE CONDITION, NO DISTRESS NOTED, PT TRANSFERRED BACK TO [facility] [place], PICC LINE TO R UA AND VALENTE IN PLACE.
== END 2018-10-11 23:45 | DRG 720 ==
LOC: MED 23:25 → MIC 10-07 02:07 → MTU 10-10 17:49
PROVIDERS: ADMIT General Practice; ATTEND General Practice
PROC: 02HV33Z Insertion of Infusion Device into Superior Vena Cava, Percutaneous Approach (ICD-10-PCS; principal; 2018-10-08)
PROC: B548ZZA Ultrasonography of Superior Vena Cava, Guidance (ICD-10-PCS; 2018-10-08)
DX: A41.51 Sepsis due to Escherichia coli [E. coli] (principal); J69.0 Pneumonitis due to inhalation of food and vomit; R65.21 Severe sepsis with septic shock; G93.1 Anoxic brain damage, not elsewhere classified; E43 Unspecified severe protein-calorie malnutrition; J96.11 Chronic respiratory failure with hypoxia; J90 Pleural effusion, not elsewhere classified; N17.9 Acute kidney failure, unspecified; G40.909 Epilepsy, unspecified, not intractable, without status epilepticus; K21.9 Gastro-esophageal reflux disease without esophagitis; Z16.12 Extended spectrum beta lactamase (ESBL) resistance; I51.7 Cardiomegaly; R31.9 Hematuria, unspecified; R74.0 Nonspecific elevation of levels of transaminase and lactic acid dehydrogenase [LDH]; F07.81 Postconcussional syndrome; E86.0 Dehydration; R13.10 Dysphagia, unspecified; E87.8 Other disorders of electrolyte and fluid balance, not elsewhere classified; E83.39 Other disorders of phosphorus metabolism; E87.0 Hyperosmolality and hypernatremia; E87.6 Hypokalemia; N39.0 Urinary tract infection, site not specified; D64.9 Anemia, unspecified; R80.9 Proteinuria, unspecified; D69.6 Thrombocytopenia, unspecified; Z93.0 Tracheostomy status; Z88.1 Allergy status to other antibiotic agents; Z98.2 Presence of cerebrospinal fluid drainage device; Z88.8 Allergy status to other drugs, medicaments and biological substances; Z87.820 Personal history of traumatic brain injury; Z74.01 Bed confinement status; Z68.24 Body mass index [BMI] 24.0-24.9, adult; Z79.01 Long term (current) use of anticoagulants
CPT/HCPCS: 36415; 36600; 71045; 80048; 80053; 80202; 80305; 81001; 82272; 82803; 82948; 83036; 83605; 83690; 83735; 83880; 84100; 84443; 85025; 85610; 85730; 87040; 87070; 87081; 87086; 87186; 87205; 89220; 93005; 94640; 96365; 96375; 99285; C1751; C9113; J0696; J1200; J1720; J1956; J2060; J2543; J3370; J3411; J3475; J3480; J3490; J7030; J7060; J7620; Q0092